=== PATIENT | female | born 1985 | race Caucasian/White ===

== ENCOUNTER 2016-06-03 06:56 | Emergency (ER) | payer BC, MEDICAID ==
[~2016-06-03] VITALS: Wt 90.0 kg
[~2016-06-03 06:56] MED LIST: ACET500T98
[2016-06-03] MEDS ORDERED: ONDANSETRON (ODT) 4 MG TAB ODT STA (07:15)
[2016-06-03] MEDS ORDERED: HYDROCODONE/APAP (5/325) TAB PO ONE (07:30)
--- NOTE | 2016-06-03 07:33 | ERD ---
ER Documentation Chief Complaint Date/Time DATE: 06/03/16 TIME: 07:31 Chief Complaint FEVER HEADACHE ABD PAIN DIARRHEA FOR THE PAST FEW DAYS. NO DYSURIA HPI This is a 30 year old female presenting with multiple complaints. Patient complains of fever, headache, diarrhea since Friday. She is complaining of generalized abdominal pain and frontal headache, rating it 9/10. She states the pain is worse when she bends her head forehead. She denies vomiting, but admits to nausea. Patient denies urinary symptoms or hematuria. She has not taken any medications today ROS All systems reviewed and are negative except as per history of present illness. Medications Home Meds Active Scripts Ondansetron (Ondansetron Odt) 4 Mg Tab.rapdis, 4 MG PO Q6H Y for NAUSEA AND/OR VOMITING, #10 TAB Prov:EVERETT LANIER PA-C 06/03/16 Hydrocodone/Acetaminophen ([place] 5-325 Tablet) 1 Each Tablet, 1 TAB PO Q6H Y for PAIN, #20 TAB Prov:EVERETT LANIER PA-C 06/03/16 Reported Medications Acetaminophen (Tylenol) 500 Mg Tab 03/02/12 Allergies Allergies: Coded Allergies: No Known Allergies (Verified Allergy, Mild, 06/03/16) PMhx/Soc History of Surgery: No Hx Neurological Disorder: No Hx Respiratory Disorders: No Hx Cardiac Disorders: No Hx Miscellaneous Medical Probl: No Hx Alcohol Use: No Hx Substance Use: No Hx Tobacco Use: No Physical Exam Vitals Vital Signs Date Time Temp Pulse Resp B/P Pulse Ox O2 Delivery O2 Flow Rate FiO2 06/03/16 06:59 98.9 84 20 142/78 99 Physical Exam GENERAL: well-developed/well-nourished, in no apparent distress, non-toxic appearing HENT: NC/AT, bilateral tympanic membrane is normal with good cone of light, nares patent, oropharynx clear without exudates EYES: Conjunctiva normal, PERRLA, EOMI, no nystagmus noted NECK: Supple, no lymphadenopathy PULM: CTA bilaterally, no rales, rhonchi, or wheezing heard CV: Normal S1S2, RRR, good capillary refill GI: Soft, non-distended, tender to palpation Normal bowel sounds, no masses or organomegaly felt on exam No gross peritonitis, no bruits Negative Rovsing, negative Thornton, negative McBurney's point, Negative CVAT BACK: No midline tenderness, no masses, No CVAT EXT: No clubbing, cyanosis, or edema NEURO: Alert and orientated to person, place, and time. CN II-IIX intact. Gait and coordination were normal. Hand legal instruments examiner strength were equal and within normal limits SKIN: Intact, normal turgor PSYCH: Normal mood and mentation, patient denied SI Result Diagram: 06/03/1671906/03/16719 Results 24 hrs Laboratory Tests Test 06/03/16 07:20 Alanine Aminotransferase (ALT/SGPT) 26IU/L Albumin 3.9g/dl Albumin/Globulin Ratio 1.08 Alkaline Phosphatase 89IU/L Anion Gap 16 Aspartate Amino Transf (AST/SGOT) 24IU/L Basophils # 0.010^3/ul Basophils % 0.4% Blood Morphology Comment Blood Urea Nitrogen 8mg/dl Calcium Level 9.2mg/dl Carbon Dioxide Level 31mmol/L Chloride Level 102mmol/L Creatinine 0.72mg/dl Direct Bilirubin 0.00mg/dl Eosinophils # 0.010^3/ul Eosinophils % 0.2% Globulin 3.60g/dl Glucose Level 95mg/dl Hematocrit 40.7% Hemoglobin 13.8g/dl Indirect Bilirubin 0.4mg/dl Lipase 86U/L Lymphocytes # 1.810^3/ul Lymphocytes % 33.7% Mean Corpuscular Hemoglobin 29.6pg Mean Corpuscular Hemoglobin Concent 33.8g/dl Mean Corpuscular Volume 87.5fl Mean Platelet Volume 9.1fl Monocytes # 0.710^3/ul Monocytes % 13.4% Neutrophils # 2.810^3/ul Neutrophils % 52.3% Nucleated Red Blood Cells # 0.010^3/ul Nucleated Red Blood Cells % 0.0/100WBC Platelet Count 73095^3/UL Potassium Level 4.4mmol/L Red Blood Count 4.6610^6/ul Red Cell Distribution Width 14.6% Sodium Level 145mmol/L Total Bilirubin 0.4mg/dl Total Protein 7.5g/dl White Blood Count 5.310^3/ul Current Medications Medications (Trade) Dose Ordered Sig/Sage Route PRN Reason Start Time Stop Time Status Last Admin Dose Admin Acetaminophen/ Hydrocodone Bitart ([place] (5/325)) 1 tab ONCE ONCE PO 06/03/16 07:30 06/03/16 07:31 DC 06/03/16 08:00 Ondansetron HCl 4 mg 4 mg ONCE STAT ODT 06/03/16 07:15 06/03/16 07:16 DC 06/03/16 08:00 Sodium Chloride (NS) 1,000 ml @ 1,000 mls/hr Q1H STAT IV 06/03/16 07:39 06/03/16 08:38 DC 06/03/16 08:00 Procedures/MDM This is a 30 year old female presenting with multiple complaints. Patient complains of fever, headache, diarrhea since Friday. She is complaining of generalized abdominal pain and frontal headache, rating it 9/10. She states the pain is worse when she bends her head forehead. Patient has stable vital signs, she appears well. She had a normal neurological exam, her abdominal examination was unremarkable. Patient likely has a viral syndrome. She is suitable to follow -up with he primary care physician. . My differential diagnoses include tension , migraine, and cluster headache, overuse medication headache, subarachnoid hemorrhage, meningitis, stroke. Pain relief was given in the ED with some improvement. Neurology exam was normal and I don't recommend a CT scan at this time. Patient was given D[place] and Zofran in the ED. Patient passed the fluid challenge test. IV access is established. Patient was given 1 L fluids. Lab work was drawn. CBC did not show any evidence of leukocytosis or anemia. CMP did not show any evidence of renal, liver, or electrolyte abnormalities. She is hemodynamically stable and neurovascularly intact. Prescriptions D[place] and Zofran were given. Discussed to follow up with a primary care physician in the next couple days. Return to the ER if condition worsens or not improving as expected. Patient agreed and understood this plan. Departure Diagnosis: Primary Impression: Headache Headache type: unspecified Headache chronicity pattern: acute headache Intractability: not intractable Qualified Code: R51 - Acute nonintractable headache, unspecified headache type Additional Impression: Diarrhea Diarrhea type: unspecified type Qualified Code: R19.7 - Diarrhea, unspecified type Condition: Stable EVERETT LANIER PA-C Jun 03, 2016 07:33
[2016-06-03] MEDS ORDERED: SOD CHLORIDE 0.9% 1,000 ML IV STA (07:39)
[2016-06-03 08:17] LABS: BASOPHILS % 0.4 % (0.0-2.0); EOSINOPHILS % 0.2 % (0.0-7.0); HEMATOCRIT 40.7 % (37.0-47.0); HEMOGLOBIN 13.8 g/dl (12.0-16.0); LYMPHOCYTES # 1.8 10^3/ul (0.8-2.9); LYMPHOCYTES % 33.7 % (15.0-51.0); MEAN CORPUSCULAR HEMOGLOBIN 29.6 pg (29.0-33.0); MEAN CORPUSCULAR HGB CONC 33.8 g/dl (32.0-37.0); MEAN CORPUSCULAR VOLUME 87.5 fl (82.0-101.0); MEAN PLATELET VOLUME 9.1 fl (7.4-10.4); MONOCYTE # 0.7 10^3/ul (0.3-0.9); MONOCYTES % 13.4 % (0.0-11.0); NEUTROPHIL # 2.8 10^3/ul (1.6-7.5); NEUTROPHILS % 52.3 % (39.0-77.0); PLATELET COUNT 180 10^3/UL (140-440); RED BLOOD COUNT 4.66 10^6/ul (4.20-5.40); RED CELL DISTRIBUTION WIDTH 14.6 % (11.5-14.5); UNCORRECTED WBC 5.3 10^3/ul (4.8-10.8); WHITE BLOOD COUNT 5.3 10^3/ul (4.8-10.8)
[2016-06-03 08:22] LABS: ALBUMIN 3.9 g/dl (3.3-4.9)
[2016-06-03 08:23] LABS: CONDITION 1; LH ANALYZER COMMENTS 1; POTASSIUM 4.4 mmol/L (3.5-5.1)
[2016-06-03 08:25] LABS: ALBUMIN/GLOBULIN RATIO 1.08; BILIRUBIN,INDIRECT 0.4 mg/dl (0-1.1); BILIRUBIN,TOTAL 0.4 mg/dl (0.2-1.3); CREATININE 0.72 mg/dl (0.44-1.00); TOTAL PROTEIN 7.5 g/dl (6.1-8.1)
[2016-06-03 08:26] LABS: CALCIUM 9.2 mg/dl (8.4-10.2)
[2016-06-03] MEDS ORDERED: ONDA4TAB14 PO (08:40)
[2016-06-03] MEDS ORDERED: HYDR-906 PO (08:40)
== END 2016-06-03 08:52 | disposition home or self-care (01) ==
LOC: FTE 06:56
DX: R51 Headache (principal); R19.7 Diarrhea, unspecified
CPT/HCPCS: 36415; 80053; 83690; 85025; 96360; J7030; Z7502; Z7610

== ENCOUNTER 2017-06-23 10:14 | Inpatient (IN) | END 2017-06-24 16:00 | disposition home or self-care (01) | DRG 446 ==

== ENCOUNTER 2017-06-25 10:54 | Emergency (ER) | END 2017-06-25 14:08 | disposition left against medical advice (07) ==